=== PATIENT | female | born 1945 ===

== ENCOUNTER 2018-03-29 18:55 | Emergency (ER) | payer MEDICAID, MEDICARE ==
[2018-03-29] MEDS ORDERED: Prochlorperazine 10 MG/2 ML SDV IM ONE (19:37)
--- NOTE | 2018-03-29 20:12 | EDM.PDOC ---
ED HPI GENERAL MEDICAL PROBLEM - General Chief Complaint: Eye Problems Stated Complaint: INFECTION IN LEFT EYE, SEVERE HEADACHE Time Seen by Provider: 03/29/18 19:22 Source of Information: Reports: Patient, RN Notes Reviewed History Limitations: Reports: Other (No prior records, patient does not remember exact diagnosis or medications) - History of Present Illness INITIAL COMMENTS - FREE TEXT/NARRATIVE: Brought by her daughter Chief complaint "Left eye infection" History of present 73-year-old female presents with complaints of an eye infection. She She has similar affliction about 6 months ago treated by ophthalmology in [place] and then locally, with a couple of different eyedrops. She was told it was an infection between the lining is of the eyes. She presented with very similar symptoms as today. Starting last night she started developing pain in the left eye, nausea, headache, and blurry vision. The vision is almost completely gone in the left eye today and her headache has caused her to vomit although she has very little in her stomach. Some watery discharge from the left eye. She was told in the past that wasn't glaucoma that they tested the pressures and it was fine. She may night appointment for tomorrow but came in tonight because of the pain being so bad and her headache causing her to vomit. 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 Denies: Fever, Chills HEENT: Reports: Eye Pain, Vision Change, Other (Light makes the pain in her eye and headache worse). Denies: Ear Pain, Eye Discharge, Rhinitis, Throat Pain Respiratory: Reports: No Symptoms Cardiovascular: Reports: No Symptoms GI/Abdominal: Reports: Nausea, Vomiting. Denies: Abdominal Pain, Diarrhea : Reports: No Symptoms Musculoskeletal: Reports: No Symptoms Skin: Reports: No Symptoms Neurological: Reports: No Symptoms Hematologic/Lymphatic: Reports: No Symptoms ED EXAM GENERAL W FULL EYE - Physical Exam Exam: See Below Exam Limited By: No Limitations General Appearance: Alert, Moderate Distress (Vomiting and very uncomfortable), Other (Elevated blood pressure other vital signs normal) Eye Exam: Right Eye: Normal Fundi (Unable to visualize left due to cloudy vitreous), Normal Inspection, PERRL, Left Eye: Abnormal Pupil (Dilated with decreased reactivity), Conjunctival Injection (All of the sclera), Vision Changes (Marked decrease in vision) Visual Acuity (R) 20/: 70 Visual Acuity (L) 20/: 200 With Correction: No IOP (R) in mmH (Average of 2 readings) IOP (L) in mmH (Average of 2 readings) IOP Measure with (Equipment): Tonopen Eyelids: Bilateral: Normal Appearance Conjunctiva & Sclera: Right: Normal Appearance, Left: Injected Cornea Exam: Bilateral: Normal Appearance Extraocular Movements: Bilateral: Intact Pupillary Size: Right: 3 mm, Left: 5 mm Pupillary Reaction: Right: Brisk, Left: Absent Anterior Chamber: Bilateral: Normal Appearance Posterior Chamber: Left: Unable to Examine (Due to vitreal clotting) Ears: Normal External Exam, Hearing Grossly Normal Nose: Normal Inspection Throat/Mouth: Normal Inspection Respiratory/Chest: No Respiratory Distress Cardiovascular: Normal Peripheral Pulses, Regular Rate, Rhythm GI/Abdominal: Other (Actively retching) Extremities: Normal Inspection Neurological: Alert, Oriented, No Motor/Sensory Deficits Skin Exam: Warm, Normal Color Course - Vital Signs Last Recorded V/S: Last Vital Signs Temp 35.8 C 03/29/18 19:12 Pulse 62 03/29/18 19:12 Resp 14 03/29/18 19:12 BP 215/85 H 03/29/18 19:12 Pulse Ox 99 03/29/18 19:12 - Orders/Labs/Meds Orders: Active Orders 24 hr Category Date Time Status Peripheral IV Care [RC] . DIRECTED Care 03/29/18 20:20 Active Pilocarpine [Pilocar 2% Ophth Soln] Med 03/29/18 21:00 Once 0 ml EYELF ONETIME ONE Sodium Chloride 0.9% [Normal Saline] 1,000 ml Med 03/29/18 20:30 Active IV ASDIRECTED Sodium Chloride 0.9% [Saline Flush] Med 03/29/18 20:20 Active 10 ml FLUSH ASDIRECTED PRN Peripheral IV Insertion Adult [OM.PC] Routine Oth 03/29/18 20:20 Ordered Medication Orders Sodium Chloride (Normal Saline) 1,000 mls @ 500 mls/hr IV ASDIRECTED BABAR Last Admin: 03/29/18 20:43 Dose: 500 mls/hr Pilocarpine HCl (Pilocar 2% Ophth Soln) 0 ml EYELF ONETIME ONE Stop: 03/29/18 21:01 Sodium Chloride (Saline Flush) 10 ml FLUSH ASDIRECTED PRN PRN Reason: Keep Vein Open Last Admin: 03/29/18 20:44 Dose: 10 ml Meds: Medications Generic Name Dose Route Start Last Admin Trade Name Freq PRN Reason Stop Dose Admin Sodium Chloride 1,000 mls @ 500 mls/hr 03/29/18 20:30 03/29/18 20:43 Normal Saline IV 500 mls/hr ASDIRECTED BABAR Administration Pilocarpine HCl 0 ml 03/29/18 21:00 Pilocar 2% Ophth Soln EYELF 03/29/18 21:01 ONETIME ONE Sodium Chloride 10 ml 03/29/18 20:20 03/29/18 20:44 Saline Flush FLUSH 10 ml ASDIRECTED PRN Administration Keep Vein Open Discontinued Medications Generic Name Dose Route Start Last Admin Trade Name Freq PRN Reason Stop Dose Admin Acetazolamide 250 mg 03/29/18 20:33 03/29/18 20:44 Diamox IVPUSH 03/29/18 20:34 250 mg ONETIME ONE Administration Morphine Sulfate 5 mg 03/29/18 20:20 03/29/18 20:43 Morphine IVPUSH 03/29/18 20:21 5 mg ONETIME ONE Administration Ondansetron HCl 4 mg 03/29/18 20:20 03/29/18 20:43 Zofran IVPUSH 03/29/18 20:21 4 mg ONETIME ONE Administration Pilocarpine HCl 0.25 ml 03/29/18 20:39 Pilocar 2% Ophth Soln EYELF 03/29/18 20:40 ONETIME STA Prochlorperazine Edisylate 5 mg 03/29/18 19:37 03/29/18 19:42 Compazine IM 03/29/18 19:38 5 mg ONETIME ONE Administration Timolol Maleate 0.25 ml 03/29/18 20:37 Timoptic 0.5% Ophth Soln EYELF 03/29/18 20:38 ONETIME STA - Re-Assessments/Exams Free Text/Narrative Re-Assessment/Exam: 03/29/18 20:15 73-year-old female with acute pain left eye headache nausea vomiting and decreased visual acuity The chill clouding and increased intraocular pressure on the left eye along with loss of pupillary reactivity and presence of pupillary dilation Also elevated blood pressure and photophobia. Differential diagnosis includes acute glaucoma, iritis, I infection. 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 Carmen Eisenberg She will meet you at (the: [facility] [address] [facility] [id number] ON THE EAST SIDE OF THE CLINIC If you have any problems meaning the doctor, call the [facility] line at a lot of pain - My Orders Last 24 Hours: My Active Orders 03/29/18 20:20 Peripheral IV Care [RC] . DIRECTED Sodium Chloride 0.9% [Saline Flush] 10 ml FLUSH ASDIRECTED PRN Peripheral IV Insertion Adult [OM.PC] Routine 03/29/18 20:30 Sodium Chloride 0.9% [Normal Saline] 1,000 ml IV ASDIRECTED 03/29/18 21:00 Pilocarpine [Pilocar 2% Ophth Soln] 0 ml EYELF ONETIME ONE - Assessment/Plan Last 24 Hours: My Active Orders 03/29/18 20:20 Peripheral IV Care [RC] . DIRECTED Sodium Chloride 0.9% [Saline Flush] 10 ml FLUSH ASDIRECTED PRN Peripheral IV Insertion Adult [OM.PC] Routine 03/29/18 20:30 Sodium Chloride 0.9% [Normal Saline] 1,000 ml IV ASDIRECTED 03/29/18 21:00 Pilocarpine [Pilocar 2% Ophth Soln] 0 ml EYELF ONETIME ONE
[2018-03-29] MEDS ORDERED: Ondansetron 4 MG/2 ML SDV IVPUSH ONE (20:20)
[2018-03-29] MEDS ORDERED: Morphine 10 MG/ML Syringe IVPUSH ONE (20:20)
[2018-03-29] MEDS ORDERED: Sodium Chloride 0.9% 10 ML Syringe FLUSH PRN (20:20)
[2018-03-29] MEDS ORDERED: Sodium Chloride 0.9% 1,000 ML IV SCH (20:30)
[2018-03-29] MEDS ORDERED: acetaZOLAMIDE 500 MG Vial IVPUSH ONE (20:33)
[2018-03-29] MEDS ORDERED: Timolol Maleate 0.5% Ophth Soln 5 ML Bottle EYELF STA (20:37)
[2018-03-29] MEDS ORDERED: Pilocarpine 2% Ophth Soln 15 ML Bottle EYELF STA (20:39)
[2018-03-29] MEDS ORDERED: Pilocarpine 1% Ophth Soln 15 ML Bottle EYELF ONE (21:00)
== END 2018-03-29 21:20 | disposition other institution (70) ==
LOC: JP.ED 18:55
DX: H40.9 Unspecified glaucoma (principal)
CPT/HCPCS: 96372; 96374; 96375; 99284; A9270; J0780; J1120; J2270; J2405; J7030; J7050